=== PATIENT | male | born 1970 | race Caucasian/White ===

== ENCOUNTER 2025-08-31 08:00 | Day surgery (SDC) | payer OTHER ==
[~2025-08-31] VITALS: Ht 193 cm; Wt 124.7 kg
[~2025-08-31 08:00] MED LIST: ALLO300T2 PO; ATOR1TAB21 PO; CETI-24 PO; LIDOCAINE 2% 100 MG/5 ML SDV (FOR ANES.) As Ordered ONE; PRIL20TA2 PO
[2025-08-31 09:26] VITALS: TEMP 98.1
[2025-08-31 09:50] VITALS: BP 154/98; O2SAT 97
== END 2025-08-31 09:52 | disposition home or self-care (01) ==
LOC: M OPP 08:00
PROVIDERS: ATTEND Internal Medicine Gastroenterology
DX: Z12.11 Encounter for screening for malignant neoplasm of colon (principal); K64.0 First degree hemorrhoids; R12 Heartburn; Z79.899 Other long term (current) drug therapy